=== PATIENT | male | born 1950 | race Caucasian/White ===

== ENCOUNTER 2024-06-12 12:55 | Observation (INO) | payer BC, SELFPAY ==
[2024-06-12] VITALS (10 sets, daily range): BP systolic 117–148; BP diastolic 60–77; BMI 31.3; BMI 31.0
[2024-06-12 06:20] LABS: % Basophils 0.4 % (0-2); % Eosinophils 0.4 % (0-6); % Immature Granulocytes 0.4 % (0-0.5); % Lymphocytes 5.6 % (20.5-51.1); % Monocytes 10.7 % (1.7-9.3); % Neutrophils 82.5 % (42.2-75.2); Absolute Lymphocytes 0.5 10^3/uL (1.2-3.4); Absolute Monocytes 0.9 10^3/uL (0.1-0.6); Absolute Neutrophils 6.7 10^3/uL (1.4-6.5); Hematocrit 42.2 % (39.0-52.0); Hemoglobin 14.2 g/dL (13.0-18.0); Mean Corp Hgb Conc. 33.6 g/dL (33.0-37.0); Mean Corpuscular Hgb 32.3 pg (27.0-31.0); Mean Corpuscular Volume 95.9 fL (80.0-94.0); Mean Platelet Volume 11.1 fL (7.4-10.4); Nucleated Red Blood Cells % 0 % (-); Platelet Count 169 10^3/uL (130-400); Red Cell Dist. Width 12.6 % (11.5-14.5); White Blood Cell Count 8.2 10^3/uL (4.8-10.8)
[2024-06-12 06:34] LABS: ALT (SGPT) 34 U/L (0-50); AST (SGOT) 31 U/L (17-59); Albumin 4.3 g/dl (3.5-5.0); Alkaline Phosphatase 71 U/L (38-126); Blood Urea Nitrogen 16 mg/dl (9-20); Calcium 9.3 mg/dl (8.4-10.2); Carbon Dioxide 31 mmol/L (22-30); Chloride 103 mmol/L (98-107); Estimated Creatinine Clearance 74 ml/min; Glucose 118 mg/dl (70-99); Sodium 142 mmol/L (135-145); Total Bilirubin 0.7 mg/dl (0.2-1.3); Total Protein 7.1 g/dl (6.3-8.2); eGFR > 60.00
[2024-06-12 06:38] LABS: COVID-19 Antigen Negative (Negative)
[2024-06-12 06:48] LABS: Troponin I 0.102 ng/ml
--- NOTE | 2024-06-12 07:05 | ED.GENMED ---
History of Present Illness
General
Chief Complaint: Heart Rate Problem
Source: patient
Exam Limitations: none
Time Seen by Provider: 06/12/24 06:48
History of Present Illness
History of Present Illness:
See MDM
Past History
Past History
ED Past Medical History: HTN
ED Past Surgical History: None
Social History
Tobacco: Non-smoker
Alcohol: None
Phy Exam
Physical Exam
Physical Exam:
See MDM
Course
Orders/Labs/Results
Orders:
Orders
06/12/24 05:50
EKG [Electrocardiogram (*1)] Urgent
Reason for Study: Tachycardia
EKG- Treatment ONCE
06/12/24 06:06
COVID-19 Antigen Urgent
Source: Nasal Swab
Complete Blood Count/With Diff Urgent
Comprehensive Metabolic Panel Urgent
Troponin I Urgent
Influenza A+B Rapid Molecular Urgent
FIFI Source: Nasal Swab
Specimen Description:
06/12/24 06:58
Aspirin Chewable [Low Strength Aspirin] 324 mg PO NOW STA
06/12/24 06:59
0.9% Sodium Chloride 1000 ml [Nss] 1,000 ml IV BOLUS
Oseltamivir Phosphate [Tamiflu] 75 mg PO NOW STA
06/12/24 09:41
Troponin I Urgent
06/12/24 10:20
Echo 2D MMode Color/Doppler Routine
Reason for Study: palpitations, elevated troponin
Abnormal Lab Results
06/12/24 06/12/24
06:06 09:41
RBC 4.40 L 10^6/uL
(4.70-6.10)
MCV 95.9 H fL
(80.0-94.0)
MCH 32.3 H pg
(27.0-31.0)
MPV 11.1 H fL
(7.4-10.4)
Absolute Neuts (auto) 6.7 H 10^3/uL
(1.4-6.5)
Absolute Lymphs (auto) 0.5 L 10^3/uL
(1.2-3.4)
Absolute Monos (auto) 0.9 H 10^3/uL
(0.1-0.6)
Neutrophils % 82.5 H %
(42.2-75.2)
Lymphocytes % 5.6 L %
(20.5-51.1)
Monocytes % 10.7 H %
(1.7-9.3)
Carbon Dioxide 31 H mmol/L
(22-30)
Glucose 118 H mg/dl
(70-99)
Troponin I 0.102 H* ng/ml 0.166 H* D ng/ml
06/12/24 06:06
06/12/24 06:06
Vital Signs
Initial and Last Documented VS:
Initial Vital Signs
Temp Pulse
99.7 F 82
06/12/24 06:00 06/12/24 06:00
Last Documented Vital Signs
Temp Pulse Resp BP Pulse Ox
99.7 F 83 23 117/72 95
06/12/24 06:00 06/12/24 09:00 06/12/24 09:00 06/12/24 09:00 06/12/24 09:00
MDM/Problems Addressed
Differential Diagnosis Includes:
HPI and MDM Narrative:
73-year-old male presenting for evaluation of palpitations. Patient states he has been dealing with elevated heart rate over the past week or so. He has since followed up with his PCP and had a Holter monitor placed. He returned the Holter
monitor but has not yet received the results. Patient states he woke up in the middle the night and his heart rate was in the 160s. He has taken Mucinex over the past few days for mild cough. On arrival, EKG within normal limits and he is
relatively symptom-free. He denies chest pain or shortness of breath. Lungs are clear. Patient found to be influenza A positive. Patient also found to have an elevated troponin. Unsure if this is rate related, ACS or potentially viral
myocarditis. Patient started on Tamiflu and will have cardiology evaluate
Physical exam
General: Well appearing and non-toxic
HEENT: protecting airway. Mildly dry mucous membranes
Neck: appears supple
CV: No evidence of cyanosis.. Regular rate and rhythm
Resp: No accessory muscle use. Lungs clear
Abd: Non-distended
Extremities: No deformities
Neuro: alert
Psych: Normal affect
Skin: Intact
Problems Addressed including Acute and Chronic Conditions affecting care:
1. Palpitations
Acuity: acute
Prognosis: stable
Details: Discussed possible A-fib versus SVT. Will continue to monitor on telemetry
2. Influenza
Acuity: acute
Prognosis: stable
Details: Will start Tamiflu
3. Dehydration
Acuity: acute
Prognosis: stable
Details: Patient started on IV fluids
Updates
Patient found to have an elevated troponin. Discussed this could be rate related versus viral myocarditis. Will start Tamiflu and have cardiology evaluate. Although no active chest pain or shortness of breath, patient given aspirin
After cardiology did evaluate, second troponin was ordered and it is trending upwards. Will admit and cardiology will follow and obtain echo
Differential Diagnosis (but not limited to): Acute coronary syndrome, myocarditis
Testing considered: Chest x-ray but lungs clear
Drug therapy (if applicable): OTC meds, please see d/c instruction regarding Rx drugs
Amount and/or Complexity of Data Reviewed
Clinical info obtained from: Patient
External data reviewed: N/A
Labs I independently reviewed (but not limited to): Elevated troponin
Radiology: N/A
Pulse Ox: not hypoxic
EKG independently reviewed: Sinus rhythm, normal axis, no STEMI
Vessel Specialist: Sinus rhythm
Critical Care: N/A
Risk of Complication:
Social Determinants of health: Good social support
Discussed with other providers: Esl Professor, hospitalist
Escalation of Care includes Admit/Obs: Given the story of palpitations with uptrending troponin, will admit
Occasional wrong word or 'sound a like' substitutions may have occurred due to the inherent limitations of voice recognition software. Read the chart carefully and recognize, using context, where substitutions have occurred.
*Critical Care Note
Total Time (30-74mins, 75-104mins- exclusive of procedures): Not Applicable
ED Attending Note
-
Portions of this chart may have been created with voice recognition software.� Occasional wrong word or��sound alike� substitutions may have occurred due to the inherent limitations of voice recognition software.
Discharge Plan
Departure
Patient Disposition: Admit
Date of Disposition: 06/12/24
Time of Disposition: 10:33
Admit to: Telemetry
Presentation/result/management discussed w/ accepting MD/DO: Hospitalist
Discharge Problem:
Heart palpitations, Influenza A
Referrals:
Bashir Nixon MD [Family Provider] -
Interventions
Interventions:
*Risk Screen - Suicide Last Done: 06/12/24 05:51
*General Assessment Last Done: 06/12/24 05:51
*Neglect/Abuse Screening Last Done: 06/12/24 05:51
ED- Fall Risk Assessment Last Done: 06/12/24 05:51
*ED COVID-19 Vaccine History Last Done: 06/12/24 05:51
ED- Cardiac Assessment Last Done: 06/12/24 05:51
ED- Pulmonary Assessment Last Done: 06/12/24 05:51
Discharge Date and Time
Print Language: OCCITAN
[2024-06-12] MEDS: TAMIFLU 75 MG PO ×2 (07:21→19:41)
[2024-06-12] MEDS: LOW STRENGTH ASPIRIN 324 MG PO (07:21)
[2024-06-12] MEDS: NSS 1000 IV (07:22)
--- NOTE | 2024-06-12 09:59 | CON.CAR ---
Addendum entered and electronically signed by Autumn Boyd PA-C 06/12/24 16:21:
discussed with nurse Cooper from Dr. Monae's office. report now finalized. summary as follows: Predominant rhythm is sinus. Max heart rate 117, minimum heart rate 40, average heart rate 58. 270 ventricular ectopic beats less than 1% total, 490
supraventricular beats also less than 1% of total. Had 5 episodes of SVT, longest being 7 beats, 117 bpm being fastest. She will fax report tomorrow for our further review.
Addendum entered and electronically signed by Autumn Boyd PA-C 06/12/24 14:25:
called Dr. Nixon's office again regarding recent OP engine room operator, discussed with staff for 13 minutes. Reportedly 'awaiting data' from [facility]. Asked that message be sent to read study urgently given patient admitted for
palpitations and if arrhythmia noted would change mgmt. Also reached out to [facility] reps to see if study results could be sent for review.
Addendum entered and electronically signed by Champ Oliveros MD 06/12/24 10:47:
I saw and examined the patient.
The WOOD WEB WEAVING MACHINE OPERATOR or PA's note was reviewed and I agree with the note.
Comment: General: Well developed, well nourished in NAD.
Neck: Supple, no JVD, HJR, carotids +2 B/L, no bruits bilaterally.
Heart: Non displaced PMI, RRR, no murmurs, No S3, S4, no rubs.
Lungs: Rhonchi at the bases
Abdomen: Normal bowel sounds, soft, non-tender, non-distended.
Extremities: No clubbing, cyanosis or edema bilaterally.
Neuro: Grossly nonfocal, awake, alert and oriented x3.
Mitesh has a history of hypertension, hyperlipidemia, BPH, migraines, scoliosis. He has had recent palpitations and underwent a monitor by his primary care physician. Of note he initially had palpitations starting on Najma with 14 hours of
intermittent tachycardia with heart pounding and lightheadedness. He had had strong coffee and 2 glasses of wine at day. He presented to the ER with intermittent palpitations and dizziness. In ER he tested positive for flu initial troponin was
0.1 and repeat was 0.16. He admits to shortness of breath associated with chest tightness. Of note he has exercised prior to this without issues.
Will admit and track troponins. Check echocardiogram. Suspect troponin elevation is non ischemic myocardial injury. Consider outpatient stress testing if troponins remain relatively flat. Continue treatment for flu.
Original Note:
Consultation
Consultation Request
Date/Time Consultation Performed: 06/12/24
Requesting Provider: Dr. Giron
Performing Provider: Autumn Boyd PA-C for Dr. Oliveros
Reason for Consultation: palpitations, elevated troponin
Medical History
-
Chief Complaint: palpitations
History of Present Illness:
Patient is a 73-year-old male with past medical history of hypertension, hyperlipidemia, BPH, history of migraines as well as history of scoliosis surgery with belen placement approximately 40 years ago who came to ER for evaluation of palpitations.
He reports he initially noted them on Najma where he had 14 hours of intermittent tachycardia, and was symptomatic with heart pounding and lightheadedness. He states he had had a strong coffee and 2 glasses of wine that day. He was seen
by his primary care physician and had a engine room operator placed, which she completed but does not yet have the results of. He reports he has been somewhat quiescent until yesterday at about 6 PM when he noted tachycardia/palpitations again. Over
the next 8 hours he reported feeling intermittent palpitations and lightheadedness and came to the ER. He also reports having more coffee yesterday than normal. Also started taking Mucinex due to congestion. In ER tested positive for flu A.
Initial troponin 0.102. In sinus rhythm. Cardiology consulted for evaluation. no CP, SOB.
PMH:
HTN
HLD
BPH
History of migraines
History of scoliosis surgery with belen placement
Past Medical History
Past Medical History: Other (in HPI)
Social History
Tobacco: Non-Smoker
Alcohol: Occasional
Personal:
Living: With Family
Employment: Retired
Family History
Family History: Reviewed & Not Pertinent
Allergies / Home Medications
Allergy/AdvReac Type Severity Reaction Status Date / Time
adhesive tape Allergy Unknown Verified 06/12/24 05:51
Review of Systems
-
History Source: Patient
All other systems: Negative unless noted
Physical Exam
Vital Signs
Temp Pulse Resp BP Pulse Ox
99.7 F 83 23 117/72 95
06/12/24 06:00 06/12/24 09:00 06/12/24 09:00 06/12/24 09:00 06/12/24 09:00
Lab Results
06/12/24 06:06
06/12/24 06:06
Troponin I 0.102 ng/ml H* 06/12/24 06:06
Physical Exam
General: No Apparent Distress and Comfortable
HEENT: Normocephalic, Anicteric and Moist Mucous Membranes
Respiratory: Clear and Non Labored Respirations
Cardiac: S1/S2 and Regular Rhythm
GI: Soft, Non Tender, Non Distended and Normal Bowel Sounds
Musculoskeletal: No Clubbing, No Cyanosis and No Edema
Skin: Warm and Dry
Neuro: AO x 3
Impression / Plan
-
Primary Accordion Tuner: none
PCP: Dr. Bashir Nixon
Assessment:
Presentation with palpitations, intermittent and symptomatic
Influenza A +
Elevated troponin
HTN
HLD
BPH
History of migraines
History of scoliosis surgery with belen placement
Plan:
-Patient presents with second episode of palpitations in last 1.5 months.
-has been in SR since arrival to ER. follow on tele
-called PCP office and requested engine room operator results be faxed to us for review
-trop 0.102. repeat now. no CP
-EKG SR without acute ischemic abnormalities
-check echo
-supportive care of influenza. gentle IVF
Data Reviewed
-
EKG: Tracing Personally Visualized and interpreted
Labs: Labs Reviewed by me
Old Records: Requested
[2024-06-12 10:22] LABS: Troponin I 0.166 ng/ml
--- NOTE | 2024-06-12 12:37 | HPS.HSE ---
Family Physician
-
Family Physician: Bashir Nixon
Chief Complaint
-
Flu symptoms
Palpitations
History of Present Illness
Patient is a 73 years old male with history of hypertension, dyslipidemia who presents with flulike symptoms, congestion, patient reports occasional palpitations with no chest pain.
Patient with no prior history of CAD. Reports occasional palpitations as outpatient and was ordered outpatient cardiac monitoring by primary physician.
While in the emergency room patient is hemodynamically stable, afebrile.
He remains chest pain-free.
His additional workup showed mildly elevated troponin at 0.16, slightly uptrending
ECG with normal sinus rhythm and no evidence of ischemia.
The patient was tested influenza A positive
Medical History
Past Medical History
Past Medical History: Reports HTN and Hypercholesterolemia; Denies CAD
Past Surgical History: Reports None
Social History
Tobacco: Non-smoker
Alcohol: None
Drug: None
Personal:
Living: With Family
Family History
Family History: Not pertinent
Allergies / Home Medications
Allergies reflects when Allergies were last updated in [facility].
Home Medications with original date entered in [employer]
Allergy/Medication List:
Allergies
Allergy/AdvReac Type Severity Reaction Status Date / Time
adhesive tape Allergy Unknown Verified 06/12/24 05:51
Home Medications
celecoxib 100 mg capsule 100 mg PO QPM Pain 06/12/24
propranolol 60 mg capsule,24 hr,extended release 60 mg PO HS Blood Pressure 06/12/24
rosuvastatin 5 mg tablet 5 mg PO HS High Cholesterol 06/12/24
tamsulosin 0.4 mg capsule (Flomax) 0.4 mg PO QPM Urinary Issue 06/12/24
Review of Systems
-
A 12 point ROS was completed and negative except as noted: Yes
Physical Exam
Vital Signs
Vital Signs
Temp Pulse Resp BP Pulse Ox
99.7 F 88 23 127/77 95
06/12/24 06:00 06/12/24 11:15 06/12/24 11:15 06/12/24 11:14 06/12/24 10:03
Physical Exam
General: Well Developed, Well Nourished and No Apparent Distress
HEENT: NormoCephalic, Moist mucous membranes and Atraumatic
Respiratory: Clear
Cardiac: S1/S2 and Regular Rhythm; No Murmur or Rub
GI: Soft, Non Tender, Non Distended and Normal Bowel Sounds; No Organomegaly
Rectal: Deferred by Provider
Musculoskeletal: No Clubbing, No Cyanosis and No Edema
Skin: No Rash
Neuro: Nonfocal/grossly intact
Laboratory Results
-
06/12/24 06:06
06/12/24 06:06
Laboratory Results
Total Bilirubin 0.7 mg/dl (0.2-1.3) 06/12/24 06:06
AST 31 U/L (17-59) 06/12/24 06:06
ALT 34 U/L (0-50) 06/12/24 06:06
Alkaline Phosphatase 71 U/L (38-126) 06/12/24 06:06
Troponin I 0.166 ng/ml H* D 06/12/24 09:41
Impression/Plan
-
IMPRESSION:
Presentation with intermittent palpitations
Elevated troponins, likely nonischemic myocardial injury in the settings of viral infection
Influenza A positive
Essential hypertension
Dyslipidemia
BPH
History of migraines
PLAN:
Presentation with intermittent palpitations
Admitted for observation
Chest pain-free.
ECG with no evidence of ischemia
Echocardiogram with preserved biventricular function and with no evidence of right ventricular wall motion abnormalities.
Troponin 0.1, 0.16
Trend troponin
Telemetry monitoring.
Lipid profile.
Aspirin.
If unrevealing workup, will need to follow-up with cardiology for outpatient cardiac monitoring as well as stress test
Influenza A past
Upper respiratory symptoms
Afebrile.
Stable respiratory status
Initiate Tamiflu
Hypertension
Dyslipidemia
Continue propranolol and rosuvastatin
BPH informed
[2024-06-12] MEDS: TYLENOL 650 MG PO ×2 (12:54→19:40)
--- NOTE | 2024-06-12 15:30 | PTCARENOTE ---
Patient arrived via stretcher from ED. Patient AAOX4 able to make needs known. Patient ambulatory from stretcher to bed independently. Patient placed on tele. Patient medicated per JUN. Assessment documented in flowsheet. IV flushed and patent.
[2024-06-12 16:22] LABS: Troponin I 0.129 ng/ml
[2024-06-12] MEDS: FLOMAX 0.4 MG PO (17:13)
[2024-06-12] MEDS: CRESTOR 5 MG PO (22:57)
[2024-06-12] MEDS: INDERAL LA 60 MG PO (22:57)
[2024-06-12 23:38] LABS: Troponin I 0.083 ng/ml
[2024-06-13 03:00] VITALS: BP 142/79
[2024-06-13 07:25] LABS: HDL Cholesterol 45 mg/dl; LDL Cholesterol, Calculated 74 mg/dl; Total Cholesterol 131 mg/dl (50-199); Triglyceride 63 mg/dl (10-149); Very Low Density Lipoprotein 12 mg/dl (0-30)
[2024-06-13 08:10] VITALS: BP 145/83
[2024-06-13] MEDS: TAMIFLU 75 MG PO ×2 (08:20→21:49)
--- NOTE | 2024-06-13 11:09 | PTCARENOTE ---
pt w/ long pause. hr 34. pt asymptomatic. md aware. no new orders. will monitor.
[2024-06-13 11:21] VITALS: BP 143/83
--- NOTE | 2024-06-13 14:19 | W.PN.CARDCBS ---
Addendum entered and electronically signed by Dari Vaz DO 06/13/24 16:58:
I saw and examined the patient.
The Cosmetician's note was reviewed and I agree with the note.
Comment: Patient was seen and examined with at bedside. He is a 73-year-old gentleman who has had episodes of palpitations, fluttering and feeling like his heart drops associated with lightheadedness without syncope since .
Additionally, he has had an [employer] Watch for the last 5 years with new A-fib alerts beginning on Najma. Admitted now with influenza A, shortness of breath and cough. Denies chest pain or pressure.
General: No acute distress, AAOX3
Heart: Irregularly irregular. Positive S1-S2. No murmurs.
Lungs: Bronchovesicular breath sounds with coarse rhonchi bilaterally.
Abd: Positive BS, NT/ND, neg rebound/rigidity/guarding
Ext: No edema
Neuro: nonfocal
Plan:
Influenza A+
-Supportive care
-Tamiflu
-Chest x-ray ordered-pending
-Currently not requiring supplemental oxygen
Symptomatic paroxysmal atrial fibrillation with conversion pause
-Results of recent outpatient [employer] 7-day alarm security or surveillance monitor 05/31-06/07/24 obtained from primary care physician's office and reviewed. No A-fib noted, however 5 occurrences of brief SVT.
-On review of telemetry overnight, noted to have paroxysmal atrial fibrillation with occasional conversion pauses.
-Currently in rate controlled A-fib
-[id number] score of 3 for age and hypertension.
-Discussed pathophysiology of atrial fibrillation, symptoms, treatment options and stroke risk.
-Will initiate Eliquis 5 mg twice daily for stroke risk reduction
-No role for cardioversion as paroxysmal
-Discussed with EP; initiation of antiarrhythmic therapy as short-term bridge to eventual outpatient ablation. As auto converting independently, would offer patient initiation of sotalol, however would need to stay for additional 2.5 days versus
initiation of amiodarone therapy. Patient has opted for amiodarone therapy in addition to anticoagulation. Will start amiodarone 400 mg twice daily; repeat EKG in the morning
-Check TSH
Abnormal cardiac troponin with cardiac risk factors
-Troponin peaked at 0.166.
-No chest pain. EKG without acute ischemic abnormalities.
-Echocardiogram with normal biventricular size and systolic function and no regional wall motion abnormalities
-Plan for outpatient stress test once he has recovered from influenza A
Anticipate discharge home tomorrow
Original Note:
Today's Communication / Plan
-
with PAF with brief conversion pauses, asymptomatic
offer sotalol vs amiodarone
continue propranolol as BP/HR allows
start eliquis
CXR to r/o PNA
OP stress test
OP EP eval for ablation
Impression / Plan
-
Primary Skip Pit Worker: none
PCP: Dr. Bashir Nixon
Assessment:
Presentation with palpitations, intermittent and symptomatic
Influenza A +
Paroxysmal atrial fibrillation, new diagnosis, with noted conversion pauses, asymptomatic
Elevated troponin, suspected nonischemic myocardial injury
HTN
HLD
BPH
History of migraines
History of scoliosis surgery with belen placement
ECHO 06/12/2024: EF 55 to 60%, mild TR, PAP 38 mmHg
Plan:
-Patient presented with palpitations in the setting of influenza
-Results of recent outpatient [employer] 7-day alarm security or surveillance monitor 05/31-06/07/24 obtained from primary care physician's office and reviewed. No A-fib noted, however 5 occurrences of brief SVT.
-On review of telemetry overnight, noted to have paroxysmal atrial fibrillation with occasional conversion pauses. Patient noted to be asymptomatic
-Currently in rate controlled A-fib
-[id number] score of 3 for age and hypertension. will initiate OAC with eliquis 5mg BID
-No role for cardioversion as paroxysmal
-Discussed with EP. Not felt to be candidate for flecainide given elevated troponin. As auto converting independently, would offer patient initiation of sotalol, however would need to stay for additional 2.5 days versus initiation of amiodarone
therapy. Antiarrhythmic drug therapy would be a short-term bridge to ablation with plan for EP eval upon DC.
-Troponin peaked at 0.166. No chest pain. EKG without acute ischemic abnormalities.
-echo reviewed with patient and today
-supportive care of influenza. reports continues with SOB and cough. will order CXR to rule out PNA. asked nurse to check pulse ox
-d/w patient and at bedside. d/w hospitalist. d/w nursing
Progress Note - Skip Pit Worker
Subjective
Date of Service: June 13, 2024
reports some SOB, cough. no CP.
Objective
Labs:
06/12/24 06:06
06/12/24 06:06
Labs
Hgb 14.2 g/dL (13.0-18.0) 06/12/24 06:06
Hct 42.2 % (39.0-52.0) 06/12/24 06:06
Plt Count 169 10^3/uL (130-400) 06/12/24 06:06
Sodium 142 mmol/L (135-145) 06/12/24 06:06
Potassium 4.0 mmol/L (3.5-5.1) 06/12/24 06:06
BUN 16 mg/dl (9-20) 06/12/24 06:06
Creatinine 0.9 mg/dL (0.7-1.3) 06/12/24 06:06
Glucose 118 mg/dl (70-99) H 06/12/24 06:06
Troponins
06/12/24 06/12/24 06/12/24
06:06 09:41 15:46
Troponin I 0.102 H* 0.166 H* D 0.129 H*
06/12/24
23:02
Troponin I 0.083 H* D
Vital Signs and I&O:
Vital Signs
Temp Pulse Resp BP Pulse Ox
99.2 F 94 18 143/83 92
06/13/24 11:21 06/13/24 11:21 06/13/24 11:21 06/13/24 11:21 06/13/24 11:21
Vital Signs
Temp Pulse Resp BP Pulse Ox
99.2 F 94 18 143/83 92
06/13/24 11:21 06/13/24 11:21 06/13/24 11:21 06/13/24 11:21 06/13/24 11:21
Intake & Output
06/11/24 06/12/24 06/13/24 06/14/24
07:59 07:59 07:59 07:59
Intake Total 240 / 240
Balance 240 / 240
Physical Exam
Physical Exam
GEN: No distress, awake, alert, oriented x3
HEENT: supple, anicteric, mmm, eomi
LUNGS: Rhonchi B/L
CV: Irreg, S1/S2, no murmur
ABD: soft, BS+, NT/ND
EXT: No cyanosis, clubbing, edema
NEURO: Gross non-focal
SKIN: Warm, pink, dry. No rash
[2024-06-13] MEDS: LOW STRENGTH ASPIRIN 81 MG PO (14:29)
[2024-06-13 16:00] VITALS: BP 136/90
--- NOTE | 2024-06-13 16:22 | W.PN.HOSP.TC ---
Today's Communication/Plan
-
Onset of A-fib.
Ongoing cardiology evaluation and planning in terms of rate/rhythm control
Initiated on anticoagulation.
Check chest x-ray.
Continue Tamiflu
Assessment / Plan
Assessment / Plan
IMPRESSION:
Presentation with intermittent palpitations
Atrial fibrillation new diagnosis
Elevated troponins, secondary to nonischemic myocardial injury in the settings of viral infection
Influenza A positive bronchitis
Essential hypertension
Dyslipidemia
BPH
History of migraines
PLAN:
Presentation with intermittent palpitations
Admitted for observation
Chest pain-free.
ECG with no evidence of ischemia
Echocardiogram with preserved biventricular function and with no evidence of right ventricular wall motion abnormalities.
Troponin 0.1, 0.16
Echocardiogram with preserved biventricular function
Atrial fibrillation, new diagnosis.
Telemetry A-fib with conversion pauses
Repeated EKG with A-fib
Ongoing cardiology evaluation with plan for rate/rhythm control with possible options for amiodarone and sotalol load
CV 2 score 3. Initiated anticoagulation with Eliquis
Influenza A bronchitis
Upper respiratory symptoms
Afebrile.
Stable respiratory status
Chest x-ray pending
Initiated on Tamiflu
Hypertension
Dyslipidemia
Continue propranolol and rosuvastatin
BPH informed
Anticipated Discharge: 24 - 48 hours
Subjective/Interval History
-
Date of Service: June 13, 2024
Objective Data
-
Vital Signs:
Vital Signs
Temp Pulse Resp BP Pulse Ox
99.2 F 94 18 143/83 94
06/13/24 11:21 06/13/24 11:21 06/13/24 11:21 06/13/24 11:21 06/13/24 14:32
I&O
06/12/24 06/13/24 06/14/24
06:59 06:59 06:59
Intake Total 240 / 240
Balance 240 / 240
Physical Exam
-
General: Well Developed and No Apparent Distress
HEENT: Normocephalic, Atraumatic and Moist Mucous Membranes
Respiratory: Wheezes and Rhonchi
Cardiac: Regular Rhythm and S1/S2; Negative Murmur, Rub or Gallop
GI: Soft, Nontender, Nondistended and Normal Bowel Sounds; Negative Organomegaly
Rectal: Deferred by Provider
Musculoskeletal: No Clubbing, No Cyanosis and No Edema
Skin: Negative Rash
Neuro: Nonfocal/Grossly Intact
[2024-06-13] MEDS: ELIQUIS 5 MG PO (16:59)
[2024-06-13] MEDS: FLOMAX 0.4 MG PO (17:00)
[2024-06-13 19:11] LABS: Free T4 1.14 ng/dl (0.78-2.19)
[2024-06-13 19:41] VITALS: BP 119/71
[2024-06-13] MEDS: CRESTOR 5 MG PO (21:49)
[2024-06-13] MEDS: PACERONE 400 MG PO (21:49)
[2024-06-13] MEDS: INDERAL LA 60 MG PO (21:50)
[2024-06-14 00:08] VITALS: BP 110/76
[2024-06-14 03:31] VITALS: BP 122/80
[2024-06-14 07:16] VITALS: BP 123/77
[2024-06-14] MEDS: PACERONE 400 MG PO (08:31)
[2024-06-14] MEDS: ELIQUIS 5 MG PO (08:32)
[2024-06-14] MEDS: TAMIFLU 75 MG PO (08:33)
[2024-06-14] MEDS: LOW STRENGTH ASPIRIN 81 MG PO (08:33)
[2024-06-14 11:10] VITALS: BP 102/57
--- NOTE | 2024-06-14 11:44 | W.PN.CARDCBS ---
Addendum entered and electronically signed by Savage Shaver MD 06/14/24 17:34:
Patient discharged prior to my evaluation.
Note below reviewed.
Physical exam not confirmed, but data reviewed, assessments and plan reviewed.
Agree with findings and recommendations
I am in agreement with the plan for discharge as outlined below
Original Note:
Today's Communication / Plan
-
Amiodarone 200 mg twice daily for 4 weeks then decrease to 200 mg daily
Eliquis 5 mg twice daily
Continue outpatient propranolol 60 mg nightly
Outpatient stress test and EP follow-up arranged
Will need outpatient repeat TFTs
Impression / Plan
-
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
PCP: Dr. Bashir Nixon
Assessment:
Presentation with palpitations, intermittent and symptomatic
Influenza A +
Paroxysmal atrial fibrillation, new diagnosis, with noted conversion pauses, asymptomatic
Elevated troponin, suspected nonischemic myocardial injury
HTN
HLD
BPH
History of migraines
History of scoliosis surgery with belen placement
ECHO 06/12/2024: EF 55 to 60%, mild TR, PAP 38 mmHg
Plan:
-Patient presented with palpitations in the setting of influenza A.
-He had recent outpatient quotation clerk through PCP office which did not show A-fib, however while here is noted to have paroxysms of atrial fibrillation with some conversion pauses ~ 3 seconds or less on review of tele overnight
-presently in SR. after discussion with EP as well as with patient 06/13, patient was initiated on amiodarone therapy. QTc stable on review of EKG 06/14. Plan for Amio a short-term bridge to ablation with plan for EP evaluation upon discharge. For
200 mg twice daily for 4 weeks then decrease to 200 mg daily upon discharge
-Outpatient propranolol 60 mg daily continued
-Eliquis 5 mg twice daily initiated this admission
-TSH low at 0.2 with compensated free T4 prior to initiation of amiodarone. [place] to be euthyroid sick syndrome. Will need repeat TFTs as an outpatient
-Troponin peaked at 0.116. No chest pain. EKG without acute abnormalities. echo with preserved EF as above. Suspected nonischemic myocardial injury secondary to flu and A-fib. Patient scheduled for outpatient exercise nuclear stress test in
several weeks once recovered from influenza prior to EP appointment
-LDL 74. Continue Crestor 5 mg p.o. nightly
-Continue supportive care of influenza, on tamiflu. Chest x-ray 06/13 without evidence of pneumonia
-d/w hospitalist. Okay for discharge today from cardiac standpoint
Progress Note - Steel Pickler
Subjective
Date of Service: June 14, 2024
Reports remains with some wheezing and cough. No palpitations or chest pain
Objective
Labs:
06/12/24 06:06
06/12/24 06:06
Labs
Hgb 14.2 g/dL (13.0-18.0) 06/12/24 06:06
Hct 42.2 % (39.0-52.0) 06/12/24 06:06
Plt Count 169 10^3/uL (130-400) 06/12/24 06:06
Sodium 142 mmol/L (135-145) 06/12/24 06:06
Potassium 4.0 mmol/L (3.5-5.1) 06/12/24 06:06
BUN 16 mg/dl (9-20) 06/12/24 06:06
Creatinine 0.9 mg/dL (0.7-1.3) 06/12/24 06:06
Glucose 118 mg/dl (70-99) H 06/12/24 06:06
Troponins
06/12/24 06/12/24 06/12/24
06:06 09:41 15:46
Troponin I 0.102 H* 0.166 H* D 0.129 H*
06/12/24
23:02
Troponin I 0.083 H* D
Vital Signs and I&O:
Vital Signs
Temp Pulse Resp BP Pulse Ox
98.1 F 62 16 102/57 94
06/14/24 11:10 06/14/24 11:10 06/14/24 11:10 06/14/24 11:10 06/14/24 11:10
Vital Signs
Temp Pulse Resp BP Pulse Ox
98.1 F 62 16 102/57 94
06/14/24 11:10 06/14/24 11:10 06/14/24 11:10 06/14/24 11:10 06/14/24 11:10
Intake & Output
06/12/24 06/13/24 06/14/24 06/15/24
07:59 07:59 07:59 07:59
Intake Total 240 / 240 480 / 480
Balance 240 / 240 480 / 480
Physical Exam
Physical Exam
GEN: No distress, awake, alert, oriented x3
HEENT: supple, anicteric, mmm, eomi
LUNGS: Wheezes and rhonchi B/L
CV: Reg, S1/S2, no murmur
ABD: soft, BS+, NT/ND
EXT: No cyanosis, clubbing, edema
NEURO: Gross non-focal
SKIN: Warm, pink, dry. No rash
--- NOTE | 2024-06-14 12:20 | W.DS.TRANS ---
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
-
Discharge Instructions:
Discharge Diagnosis/Procedures Influenza A.
Atrial fibrillation, new diagnosis
Diet Low Cholesterol
Blood Work TFT in 4-6 weeks
Others Tests exercise nuclear stress test 06/27/24 @ 7:20 AM
at the [facility] in
[facility]
Instructions:
Stand-Alone Forms:
Changes to Home Medications: Yes
Discharge Medications:
DC Medications w/original date entered in [facility]
propranolol 60 mg capsule,24 hr,extended release 60 mg PO HS Blood Pressure 06/12/24
rosuvastatin 5 mg tablet 5 mg PO HS High Cholesterol 06/12/24
tamsulosin 0.4 mg capsule (Flomax) 0.4 mg PO QPM Urinary Issue 06/12/24
amiodarone 200 mg tablet 200 mg PO BID #120 tabs 06/14/24
apixaban 5 mg tablet (Eliquis) 5 mg PO BID #60 tabs 06/14/24
oseltamivir 75 mg capsule 75 mg PO BID #6 caps 06/14/24
Home Medication Changes
Amiodarone and Eliquis initiated
Completed course of Tamiflu
Pending Results: No
== END 2024-06-14 13:56 | disposition home or self-care (01) ==
LOC: 3 WEST ACU 12:55
PROVIDERS: Physician Assistant; ADMITTING PHYSICIAN Internal Medicine; CONSULT PHYSICIAN Internal Medicine Cardiovascular Disease; EMERGENCY PHYSICIAN Student in an Organized Health Care Education/Training Program; FAMILY PHYSICIAN Internal Medicine
DX: J10.1 Influenza due to other identified influenza virus with other respiratory manifestations (principal); R00.0 Tachycardia, unspecified; Z11.52 Encounter for screening for COVID-19; R79.89 Other specified abnormal findings of blood chemistry; I10 Essential (primary) hypertension; N40.0 Benign prostatic hyperplasia without lower urinary tract symptoms; I48.0 Paroxysmal atrial fibrillation; J40 Bronchitis, not specified as acute or chronic; Z79.01 Long term (current) use of anticoagulants; E07.81 Sick-euthyroid syndrome; E78.00 Pure hypercholesterolemia, unspecified; I47.10 Supraventricular tachycardia, unspecified; Z79.899 Other long term (current) drug therapy
CPT/HCPCS: 71046; 80053; 80061; 84439; 84443; 84484; 85025; 87502; 87811; 93005; 93306; 96360; 99284; G0378